=== PATIENT | male | born 1985 | race Caucasian/White ===

== ENCOUNTER 2018-08-25 12:22 | Emergency (ER) | payer SELFPAY ==
[2018-08-25] MEDS ORDERED: NACL 0.9% 1000 ML 1,000 ML IV ONE ×2 (12:49→13:50)
[2018-08-25] MEDS ORDERED: MORPHINE IV ONE (12:49)
[2018-08-25] MEDS ORDERED: ZOFRAN IV ONE (12:49)
--- NOTE | 2018-08-25 12:56 | Emergency Department Report ---
HPI - General Chief Complaint: Chest Pain Time Seen by Provider: 08/25/18 12:25 - HPI HPI: 32-year-old male presents to the emergency department via EMS from [facility] with complaints of pain to the back of the head, neck and the abdomen. In the day the patient was complaining of some chest pain. He denies any fever, problems with bowel or bladder. He says that he feels slightly short of breath secondary to the abdominal pain. He is currently at the psychiatric facility for some recent psychiatric issues but denies any medical conditions. He did not take anything nor was given anything for his symptoms prior to arrival. The abdominal pain is generalized. The patient does not speak any Irish and there is an machine ii cutter present. ED Past Medical Hx - Past Medical History Additional medical history: psychosis - Social History Smoking Status: Current Every Day Smoker Substance Use Type: Alcohol ED Review of Systems ROS: Stated complaint: CHEST/BACK PAIN Other details as noted in HPI Comment: All other systems reviewed and negative Constitutional: denies: chills, fever Eyes: denies: eye pain, vision change ENT: denies: ear pain, throat pain Respiratory: shortness of breath. denies: cough Cardiovascular: chest pain. denies: palpitations Gastrointestinal: abdominal pain. denies: nausea, vomiting Genitourinary: denies: dysuria, discharge Musculoskeletal: denies: joint swelling, arthralgia Skin: denies: rash, lesions Neurological: headache. denies: weakness, numbness Physical Exam - Physical Exam Physical Exam: GENERAL: The patient is well-developed well-nourished. HEENT: Normocephalic. Atraumatic. Patient has moist mucous membranes. EYES: Extraocular motions are intact. Right pupil is equal and reactive to light. NECK: Supple. Trachea is midline. CHEST/LUNGS: Clear to auscultation. There is no respiratory distress noted. HEART/CARDIOVASCULAR: Regular. There is no tachycardia. There is no obvious murmur. ABDOMEN: Abdomen is soft. There is general abdominal tenderness to palpation. No guarding. Patient has normal bowel sounds. There is no abdominal distention. SKIN: Skin is warm and dry. NEURO: The patient is awake, alert, and cooperative. The patient has no focal neurologic deficits. The patient has normal speech. Cranial nerves II through XII grossly intact. MUSCULOSKELETAL: There is no tenderness or deformity. There is no limitation range of motion. There is no evidence of acute injury. ED Medical Decision Making - Lab Data Result diagrams: 08/25/18 12:53 08/25/18 12:56 - EKG Data -: EKG Interpreted by Me EKG shows normal: sinus rhythm, axis, intervals, QRS complexes, ST-T waves Rate: normal - EKG Data When compared to previous EKG there are: previous EKG unavailable Interpretation: normal EKG - Radiology Data Radiology results: report reviewed, image reviewed interpreted by me: Chest x-ray does not show any pneumothorax, pleural effusion, pneumonia or obvious focal consolidation. Abdominal x-ray shows nonspecific nonobstructive bowel gas CT HEAD WITHOUT CONTRAST: HISTORY: Headache. TECHNIQUE: Sequential 2.5mm CT images. COMPARISON: none. FINDINGS: Cerebral Parenchyma: Within normal limits. Cerebellum: Within normal limits. Brainstem: Within normal limits. Ventricles: Normal. Sella: Normal. Extra-axial spaces: Normal. Basal Cisterns: Normal. Intracranial Hemorrhage: None. Midline Shift: None. Calvarium: Normal. Sinuses: Normal. Mastoid Air Cells: Normal. 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 IMPRESSION: Cranial CT scan within normal limits. Transcribed By: TTR Dictated By: ERIC BANDA JR, MD Electronically Authenticated By: ERIC BANDA JR, MD Signed Date/Time: 08/25/[address] ABDOMEN PELVIS WITH CONTRAST: HISTORY: abdominal pain. COMPARISON: none. TECHNIQUE: Helical CT in 1.25mm intervals following IV contrast. Sagittal and coronal reconstructions. FINDINGS: Lung bases: Normal. Liver: Normal. Biliary system: Normal. Pancreas: Normal. Spleen: Normal. Kidneys/ureters/bladder: Normal. Adrenal glands: Normal. Aorta: Normal. Intestines: Normal. Appendix: Normal. Pelvic viscera: Normal. Ascites: None. Adenopathy: None. Musculoskeletal: Normal. IMPRESSION: Unremarkable CT scan of the abdomen and pelvis with contrast. Transcribed By: TTR Dictated By: ERIC BANDA JR, MD Electronically Authenticated By: ERIC BANDA JR, MD Signed Date/Time: 08/25/18 1444 - Medical Decision Making Patient presents from his psychiatric facility with complaint of headache and some abdominal pain. Earlier today he was also having some chest pain but that has since resolved. Patient's labs have been unremarkable including a CBC, CMP, lipase, urinalysis and troponin. Chest x-ray does not show any pleural effusions, pneumothorax, pneumonia, focal consolidation, or any other acute process. Abdominal x-ray shows nonspecific nonobstructive bowel gas. CT scan of the head did not show any bleed, shift, mass, ischemia, or any other acute processes. CT of the abdomen and pelvis with IV contrast does not show any intr a-abdominal or intrapelvic pathology. Patient was given a few doses of pain medication and some IV fluid resuscitation and upon reevaluation he says he is feeling greatly improved. Vital signs stable throughout his ED course. All the labs, imaging results and the plan for discharge back to the [facility], were discussed with the patient using the machine ii cutter services. He understands and agrees to plan and all questions have been answered. He will be returned to the emergency Department with any return of worsening of his symptoms with any acute distress. - Differential Diagnosis tension headache, migraine headache, NE, colitis, gastritis Critical Care Time: No Critical care attestation.: If time is entered above; I have spent that time in minutes in the direct care of this critically ill patient, excluding procedure time. ED Disposition Clinical Impression: Abdominal pain Qualifiers: Abdominal location: generalized Qualified Code(s): R10.84 - Generalized abdominal pain Headache Qualifiers: Headache type: unspecified Headache chronicity pattern: acute headache Intractability: not intractable Qualified Code(s): R51 - Headache Disposition: DC/TX-65 PSY HOSP/PSY UNIT Is pt being admited?: No Condition: Stable Instructions: Acute Headache (ED), Abdominal Pain (ED) Additional Instructions: Please follow up with a primary care provider as soon as you are done with [facility] and are able to do so. Return to the emergency department with any return or worsening of your symptoms, or with any acute distress. Referrals: Primary Care Provider, Your [Other] - 3-5 Days [facility] [Outside] - 3-5 Days Time of Disposition: 14:57 Print Language: GAMBIAN
[2018-08-25 13:03] LABS: Basophils % (Auto) 0.5 % (0.0-1.8); Eosinophils # (Auto) 0.3 K/mm3 (0.0-0.4); Eosinophils % (Auto) 3.5 % (0.0-4.3); Hematocrit 43.7 % (35.5-45.6); Hemoglobin 14.8 gm/dl (11.8-15.2); Lymphocytes % (Auto) 23.2 % (13.4-35.0); Mean Corpuscular HGB Conc 34 % (32-34); Mean Corpuscular Volume 97 fl (84-94); Monocytes # (Auto) 0.7 K/mm3 (0.0-0.8); Monocytes % (Auto) 7.8 % (0.0-7.3); Platelet Count 246 K/mm3 (140-440); Red Blood Count 4.49 M/mm3 (3.65-5.03); Red Cell Distribution Width 13.5 % (13.2-15.2)
[2018-08-25 13:30] LABS: Alanine Aminotransferase 23 units/L (7-56); Albumin 4.4 g/dL (3.9-5); BUN/Creatinine Ratio 13; Blood Urea Nitrogen 10 mg/dL (9-20); Hemolysis Index 9
[2018-08-25 13:45] LABS: Bilirubin,Urine NEG (Negative); Blood,Urine NEG (Negative); Color,Urine Straw (Yellow); Mucus,Urine FEW /HPF; Protein,Urine <15 mg/dL mg/dL (Negative); Urobilinogen,Urine < 2.0 mg/dL (<2.0); WBC,Urine < 1.0 /HPF (0.0-6.0)
[2018-08-25] MEDS ORDERED: DILAUDID IV ONE (13:50)
[2018-08-25] MEDS ORDERED: DILAUDID ONE (13:54)
--- NOTE | 2018-08-25 14:00 | XRay Report ---
ABDOMINAL SERIES: History: Abdominal pain. Erect chest film shows no acute or significant changes involving the heart or lung jacob. There is no evidence of free air beneath the diaphragms. The gas pattern within the abdomen is unremarkable. There is no evidence of bowel dilatation, significant air-fluid levels, or masses. Organ shadows are unremarkable. IMPRESSION: Abdominal series within normal limits.
--- NOTE | 2018-08-25 14:29 | Cat Scan Report ---
CT HEAD WITHOUT CONTRAST: HISTORY: Headache. TECHNIQUE: Sequential 2.5mm CT images. COMPARISON: none. FINDINGS: Cerebral Parenchyma: Within normal limits. Cerebellum: Within normal limits. Brainstem: Within normal limits. Ventricles: Normal. Sella: Normal. Extra-axial spaces: Normal. Basal Cisterns: Normal. Intracranial Hemorrhage: None. Midline Shift: None. Calvarium: Normal. Sinuses: Normal. Mastoid Air Cells: Normal. 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 IMPRESSION: Cranial CT scan within normal limits.
--- NOTE | 2018-08-25 14:49 | Cat Scan Report ---
CT ABDOMEN PELVIS WITH CONTRAST: HISTORY: abdominal pain. COMPARISON: none. TECHNIQUE: Helical CT in 1.25mm intervals following IV contrast. Sagittal and coronal reconstructions. FINDINGS: Lung bases: Normal. Liver: Normal. Biliary system: Normal. Pancreas: Normal. Spleen: Normal. Kidneys/ureters/bladder: Normal. Adrenal glands: Normal. Aorta: Normal. Intestines: Normal. Appendix: Normal. Pelvic viscera: Normal. Ascites: None. Adenopathy: None. Musculoskeletal: Normal. IMPRESSION: Unremarkable CT scan of the abdomen and pelvis with contrast.
[2018-08-25 15:24] VITALS: BP 110/65
== END 2018-08-25 19:00 ==
LOC: ED 12:22
DX: R51 Headache (principal); R10.84 Generalized abdominal pain; R07.89 Other chest pain; F17.200 Nicotine dependence, unspecified, uncomplicated
CPT/HCPCS: 36415; 70450; 74022; 74177; 80053; 81001; 83690; 84484; 85025; 85379; 93005; 93010; 96375; 99285; J1170; J2270; J2405; J7030; Q9967; 96374